=== PATIENT | female | born 2000 | race Caucasian/White ===

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

== ENCOUNTER → 2022-01-05 | Outpatient (REF) | payer OTHER | LOC: M SFHCWAGY 16:47 | PROVIDERS: ATTEND Advanced Practice Midwife | DX: Z36.85 Encounter for antenatal screening for Streptococcus B (principal) ==

== ENCOUNTER → 2022-01-22 | Outpatient (CLI) | payer OTHER ==
[~2022-01-22] MED LIST changes: +COLA100C5 PO; +IRON1TAB2 PO
== END ==
LOC: M LABSMTC 10:51
PROVIDERS: ATTEND Anesthesiology
DX: Z01.812 Encounter for preprocedural laboratory examination (principal); Z20.822 Contact with and (suspected) exposure to COVID-19

== ENCOUNTER 2022-01-27 06:10 | Inpatient (IN) | payer OTHER ==
[2022-01-27] VITALS (7 sets, daily range): BP systolic 119–143; BP diastolic 61–88
[~2022-01-27] VITALS: Ht 165.1 cm; Wt 111.7 kg
[2022-01-27] MEDS ORDERED: HOME MED LIST COMPLETE! XX SCH (06:25)
[2022-01-27] MEDS ORDERED: LACTATED RINGER'S 1000 ML IV STA (06:45)
[2022-01-27] MEDS ORDERED: ceFAZolin SOD 2 GM in IV 1 EA IV ONE ×2 (06:45→06:50)
[2022-01-27] MEDS ORDERED: BICITRA 30ML SOLN UDC PO ONE ×2 (06:45→06:50)
[2022-01-27] MEDS ORDERED: LR 1,000 ML IV SCH ×2 (06:45→06:50)
[2022-01-27] MEDS ORDERED: LACTATED RINGER'S 1000 ML IV ONE (06:50)
[2022-01-27 07:58] LABS: HEMATOCRIT 35.2 % (36.0-47.0); HEMOGLOBIN 11.2 g/dl (12.0-15.5); MEAN CORPUSCULAR HEMOGLOBIN 24.7 pg (27.0-33.0); MEAN CORPUSCULAR HGB CONC 31.8 g/dl (32.0-36.5); MEAN CORPUSCULAR VOLUME 77.5 fl (80.0-96.0); PLATELET COUNT, AUTOMATED 281 10^3/uL (150-450); RED BLOOD COUNT 4.54 10^6/uL (4.00-5.40); WHITE BLOOD COUNT 10.5 10^3/uL (4.0-10.0)
[2022-01-27] MEDS ORDERED: MORPHINE PRES-FREE INJ 10 MG/10 ML VIAL (J2274) As Ordered ONE (09:43)
[2022-01-27] MEDS ORDERED: ONDANSETRON 4MG/2ML VIAL As Ordered ONE (09:43)
[2022-01-27] MEDS ORDERED: KETOROLAC 60MG 2ML VIAL As Ordered ONE (09:43)
[2022-01-27] MEDS ORDERED: ACETAMINOPHEN 1000MG 100ML IV BTL (OFIRMEV) (J0131 PER 10MG) As Ordered ONE (09:44)
[2022-01-27] MEDS ORDERED: OXYTOCIN 30 UNITS IN 0.9% NaCl 500ML IV BAG (J2590) As Ordered ONE ×2 (09:44→10:50)
[2022-01-27] MEDS ORDERED: ePHEDrine SULFATE 25 MG/5 ML(5MG/ML) SYRINGE As Ordered ONE (09:57)
[2022-01-27] MEDS ORDERED: SIMETHICONE 80MG CHEW TAB PO PRN (10:05)
[2022-01-27] MEDS ORDERED: PERCOCET 5MG/325MG TAB PO PRN (10:05)
[2022-01-27] MEDS ORDERED: MEASLES,MUMPS,RUBELLA VACCINE INJ (MMR-II) (90707) SC SCH (10:05)
[2022-01-27] MEDS: LR 1,000 ML IV SCH ×2 (10:05→18:12)
[2022-01-27] MEDS ORDERED: MOM 30ML SUSPENSION UDC PO PRN (10:05)
[2022-01-27] MEDS ORDERED: RHOGAM 300 MCG (1500 IU) INJ (J2790) IM SCH (10:05)
[2022-01-27] MEDS ORDERED: OXYTOCIN DRIP 30 UNITS in IV 1 EA IV SCH (10:05)
[2022-01-27] MEDS ORDERED: ONDANSETRON 4MG/2ML VIAL IV PRN ×2 (10:05→11:25)
[2022-01-27] MEDS ORDERED: dexameTHASONE 4 MG/ML 1ML VIAL (J1100 PER 1MG) As Ordered ONE (10:24)
[2022-01-27] MEDS ORDERED: METOCLOPRAMIDE INJ 10MG/2ML VIAL (J2765 PER 1) As Ordered ONE (10:24)
[2022-01-27] MEDS ORDERED: IBUP80TA PO (11:11)
[2022-01-27] MEDS ORDERED: PERCOCET PO (11:11)
[2022-01-27] MEDS ORDERED: oxyCODONE 5MG TAB PO PRN (11:25)
[2022-01-27] MEDS ORDERED: fentaNYL 100 MCG/2 ML INJECTION As Ordered ONE (11:56)
[2022-01-27] MEDS: fentaNYL 100 MCG/2 ML INJECTION IV PRN ×2 (12:00→12:05)
[2022-01-27] MEDS: PERCOCET 5MG/325MG TAB PO PRN (15:44)
[2022-01-27] MEDS: KETOROLAC 30 MG/ML 1ML VIAL IV SCH ×2 (15:45→22:19)
[2022-01-27] MEDS: DOCUSATE SODIUM 100MG CAPSULE PO SCH (20:38)
[2022-01-28 02:00] VITALS: BP 119/67
[2022-01-28] MEDS: KETOROLAC 30 MG/ML 1ML VIAL IV SCH (04:12)
[2022-01-28 06:00] VITALS: BP 136/70
[2022-01-28 06:37] LABS: HEMATOCRIT 28.4 % (36.0-47.0); MEAN CORPUSCULAR HEMOGLOBIN 24.9 pg (27.0-33.0); MEAN CORPUSCULAR VOLUME 77.8 fl (80.0-96.0); PLATELET COUNT, AUTOMATED 259 10^3/uL (150-450); RED BLOOD COUNT 3.65 10^6/uL (4.00-5.40)
[2022-01-28 06:42] LABS: HEMOGLOBIN 9.1 g/dl (12.0-15.5)
[2022-01-28] MEDS: PRENATAL VITAMINS CHEWABLE TABLET PO SCH (08:32)
[2022-01-28] MEDS: DOCUSATE SODIUM 100MG CAPSULE PO SCH ×2 (08:32→20:16)
[2022-01-28] MEDS: PERCOCET 5MG/325MG TAB PO PRN ×2 (08:33→18:51)
[2022-01-28 10:00] VITALS: BP 141/78
[2022-01-28] MEDS: IBUPROFEN 800 MG TAB PO SCH ×2 (12:47→20:18)
[2022-01-28 14:00] VITALS: BP 120/65
[2022-01-28 18:00] VITALS: BP 145/72
[2022-01-28 22:00] VITALS: BP 142/77
[2022-01-29] VITALS (9 sets, daily range): BP systolic 135–152; BP diastolic 76–93
[2022-01-29] MEDS: IBUPROFEN 800 MG TAB PO SCH ×3 (04:25→20:06)
[2022-01-29 09:27] LABS: HEMATOCRIT 30.4 % (36.0-47.0); HEMOGLOBIN 9.5 g/dl (12.0-15.5); MEAN CORPUSCULAR HEMOGLOBIN 24.7 pg (27.0-33.0); MEAN CORPUSCULAR HGB CONC 31.3 g/dl (32.0-36.5); PLATELET COUNT, AUTOMATED 259 10^3/uL (150-450); RED BLOOD COUNT 3.85 10^6/uL (4.00-5.40); WHITE BLOOD COUNT 12.7 10^3/uL (4.0-10.0)
[2022-01-29 09:51] LABS: ALBUMIN 2.2 GM/DL (3.2-5.2); ALT/SGPT 72 U/L (12-78); BILIRUBIN,TOTAL 0.2 MG/DL (0.2-1.0); BLOOD UREA NITROGEN 10 MG/DL (7-18); CALCIUM LEVEL 8.9 MG/DL (8.5-10.1); CARBON DIOXIDE LEVEL 26 MEQ/L (21-32); CHLORIDE LEVEL 110 MEQ/L (98-107); GLUCOSE, FASTING 85 MG/DL (70-100); POTASSIUM SERUM 4.1 MEQ/L (3.5-5.1); SODIUM LEVEL 143 MEQ/L (136-145)
[2022-01-29] MEDS: DOCUSATE SODIUM 100MG CAPSULE PO SCH ×2 (10:02→20:05)
[2022-01-29] MEDS: NIFEdipine 30 MG XL TAB PO SCH (10:03)
[2022-01-29] MEDS: PRENATAL VITAMINS CHEWABLE TABLET PO SCH (10:03)
[2022-01-29] MEDS: PERCOCET 5MG/325MG TAB PO PRN (22:31)
[2022-01-30] VITALS: BP 129/75
[2022-01-30 02:00] VITALS: BP 140/81
[2022-01-30] MEDS: IBUPROFEN 800 MG TAB PO SCH (05:45)
[2022-01-30 06:00] VITALS: BP 128/68
[2022-01-30 08:00] VITALS: BP 138/93
[2022-01-30 08:47] VITALS: BP 136/84
[2022-01-30] MEDS: NIFEdipine 30 MG XL TAB PO SCH (08:47)
[2022-01-30] MEDS: PRENATAL VITAMINS CHEWABLE TABLET PO SCH (08:48)
[2022-01-30] MEDS: DOCUSATE SODIUM 100MG CAPSULE PO SCH (08:48)
[2022-01-30] MEDS ORDERED: NIFE1TAB52 PO (09:06)
[2022-01-30 10:00] VITALS: BP 134/78
== END 2022-01-30 10:45 | disposition home or self-care (01) | DRG 540 ==
LOC: M LDI 06:10 → M OBS 12:49
PROVIDERS: ADMIT Obstetrics & Gynecology; ATTEND Obstetrics & Gynecology
PROC: 10D00Z1 Extraction of Products of Conception, Low, Open Approach (ICD-10-PCS; principal; 2022-01-27 09:30)
DX: O34.211 Maternal care for low transverse scar from previous cesarean delivery (principal); Z37.0 Single live birth; Z3A.39 39 weeks gestation of pregnancy

== ENCOUNTER 2023-01-09 07:14 | Emergency (ER) | payer OTHER ==
[~2023-01-09] VITALS: Ht 177.8 cm; Wt 90.9 kg
[~2023-01-09 07:14] MED LIST changes: +NIFE1TAB52 PO
[2023-01-09 08:26] LABS: BASO # 0.1 10^3/uL (0.0-0.2); BASO % 0.7 % (0.0-1.0); EOS # 0.2 10^3/uL (0.0-0.5); EOS % 3.3 % (0.0-3.0); HEMATOCRIT 39.6 % (36.0-47.0); HEMOGLOBIN 12.9 g/dl (12.0-15.5); LYMPH # 2.7 10^3/uL (1.5-5.0); LYMPH % 37.7 % (24.0-44.0); MEAN CORPUSCULAR HGB CONC 32.6 g/dl (32.0-36.5); MEAN CORPUSCULAR VOLUME 82.8 fl (80.0-96.0); MONO # 0.6 10^3/uL (0.0-0.8); MONO % 8.8 % (2.0-8.0); NEUTROPHILS # 3.5 10^3/uL (1.5-8.5); NEUTROPHILS % 49.4 % (36.0-66.0); PLATELET COUNT, AUTOMATED 239 10^3/uL (150-450); RED BLOOD COUNT 4.78 10^6/uL (4.00-5.40); WHITE BLOOD COUNT 7.2 10^3/uL (4.0-10.0)
[2023-01-09 08:55] LABS: HCG, SERUM QUANTITATIVE 367.5 MIU/ML (<4.2)
[2023-01-09 08:56] LABS: BLOOD UREA NITROGEN 15 MG/DL (9-23); CALCIUM LEVEL 9.3 MG/DL (8.5-10.1); CARBON DIOXIDE LEVEL 27 MMOL/L (20-31); CHLORIDE LEVEL 106 MMOL/L (98-107); CREATININE FOR GFR 0.84 MG/DL (0.55-1.30); GLUCOSE, FASTING 92 MG/DL (60-100); POTASSIUM SERUM 3.8 MMOL/L (3.5-5.1); SODIUM LEVEL 140 MMOL/L (136-145)
[2023-01-09] MEDS ORDERED: LIDOCAINE 5% (LIDODERM) PATCH TD ONE (09:25)
[2023-01-09] MEDS ORDERED: ACETAMINOPHEN 500 MG TAB PO ONE (09:25)
[2023-01-09 10:40] VITALS: BP 131/63
[2023-01-09 11:03] LABS: GC DNA AMPLIFICATION POSITIVE (NEGATIVE)
== END 2023-01-09 10:55 | disposition home or self-care (01) ==
LOC: M ED 07:14
DX: M54.9 Dorsalgia, unspecified (principal); O26.891 Other specified pregnancy related conditions, first trimester; R93.5 Abnormal findings on diagnostic imaging of other abdominal regions, including retroperitoneum; Z87.59 Personal history of other complications of pregnancy, childbirth and the puerperium; Z88.0 Allergy status to penicillin; Z88.5 Allergy status to narcotic agent; Z88.8 Allergy status to other drugs, medicaments and biological substances

== ENCOUNTER 2023-01-11 08:12 | Emergency (ER) | payer OTHER ==
[~2023-01-11] VITALS: Ht 165.1 cm; Wt 102.2 kg
[2023-01-11] MEDS ORDERED: LIDOCAINE 1% SDV 5ML VIAL DILUENT ONE (11:10)
[2023-01-11] MEDS ORDERED: cefTRIAXone 500MG VIAL IM ONE (11:10)
[2023-01-11 13:16] VITALS: BP 133/77
== END 2023-01-11 13:18 | disposition home or self-care (01) ==
LOC: M ED 08:12
DX: O20.0 Threatened abortion (principal); O98.211 Gonorrhea complicating pregnancy, first trimester; A54.02 Gonococcal vulvovaginitis, unspecified; Z3A.01 Less than 8 weeks gestation of pregnancy; Z88.0 Allergy status to penicillin
CPT/HCPCS: 84702; 96372; 99283; J0696

== ENCOUNTER → 2023-01-17 | Outpatient (CLI) | payer OTHER | LOC: M PLALAB 14:57 | PROVIDERS: ATTEND Advanced Practice Midwife | DX: O20.0 Threatened abortion (principal) ==

== ENCOUNTER → 2023-01-18 | Outpatient (CLI) | payer OTHER | LOC: M WHC 11:30 | PROVIDERS: ATTEND Advanced Practice Midwife | DX: O20.0 Threatened abortion (principal) ==

== ENCOUNTER → 2023-02-20 | Outpatient (CLI) | payer OTHER ==
[2023-02-20 19:30] LABS: URIC ACID 3.1 MG/DL (3.1-7.8)
[2023-02-20 19:32] LABS: LDH LACTATE DEHYDROGENASE 179 U/L (120-246)
[2023-02-20 19:33] LABS: ALT/SGPT 24 U/L (7.0-40); AST/SGOT 17 U/L (<34); BILIRUBIN,TOTAL 0.4 MG/DL (0.3-1.2); CREATININE FOR GFR 0.73 MG/DL (0.55-1.30)
[2023-02-20 19:39] LABS: HEMATOCRIT 40.2 % (36.0-47.0); MEAN CORPUSCULAR HEMOGLOBIN 27.3 pg (27.0-33.0); MEAN CORPUSCULAR HGB CONC 32.3 g/dl (32.0-36.5); MEAN CORPUSCULAR VOLUME 84.3 fl (80.0-96.0); PLATELET COUNT, AUTOMATED 274 10^3/uL (150-450); RED BLOOD COUNT 4.77 10^6/uL (4.00-5.40); WHITE BLOOD COUNT 11.9 10^3/uL (4.0-10.0)
[2023-02-20 19:51] LABS: TOTAL PROTEIN,RANDOM URINE 23.7 MG/DL (0.0-14.0)
[2023-02-20 20:09] LABS: HEPATITIS C VIRUS ABY INDEX < 0.0 INDEX (<0.8)
[2023-02-20 20:11] LABS: HIV 1&2 SCREEN CENTAUR NEGATIVE (NEGATIVE)
[2023-02-20 20:25] LABS: CREATININE,RANDOM URINE 408.7 MG/DL
[2023-02-20 20:54] LABS: GC DNA AMPLIFICATION NEGATIVE (NEGATIVE)
== END ==
LOC: M PLALAB 15:01
PROVIDERS: ATTEND Advanced Practice Midwife
DX: Z34.81 Encounter for supervision of other normal pregnancy, first trimester (principal)

== ENCOUNTER 2023-03-08 14:09 | Emergency (ER) | payer OTHER ==
[~2023-03-08] VITALS: Ht 165.1 cm; Wt 99.4 kg
[2023-03-08] MEDS ORDERED: ASPI-161 PO (14:25)
[2023-03-08 15:55] LABS: BASO # 0.1 10^3/uL (0.0-0.2); BASO % 0.8 % (0.0-1.0); EOS # 0.2 10^3/uL (0.0-0.5); EOS % 2.3 % (0.0-3.0); HEMATOCRIT 40.1 % (36.0-47.0); HEMOGLOBIN 13.2 g/dl (12.0-15.5); LYMPH # 1.5 10^3/uL (1.5-5.0); LYMPH % 17.9 % (24.0-44.0); MEAN CORPUSCULAR HEMOGLOBIN 27.3 pg (27.0-33.0); MEAN CORPUSCULAR HGB CONC 32.9 g/dl (32.0-36.5); MONO # 0.7 10^3/uL (0.0-0.8); NEUTROPHILS # 5.9 10^3/uL (1.5-8.5); NEUTROPHILS % 70.6 % (36.0-66.0); PLATELET COUNT, AUTOMATED 218 10^3/uL (150-450); RED BLOOD COUNT 4.83 10^6/uL (4.00-5.40); WHITE BLOOD COUNT 8.4 10^3/uL (4.0-10.0)
[2023-03-08] MEDS ORDERED: ONDANSETRON 4MG 2ML VIAL IV ONE (16:00)
[2023-03-08] MEDS ORDERED: NS 1,000 ML IV ONE (16:00)
[2023-03-08 16:08] LABS: LIPASE 27 U/L (12-53)
[2023-03-08 16:10] LABS: ALBUMIN 3.2 G/DL (3.2-5.2); ALKALINE PHOSPHATASE 95 U/L (46-116); ALT/SGPT 19 U/L (7.0-40); AST/SGOT 18 U/L (<34); BILIRUBIN,DIRECT < 0.1 MG/DL (<0.4); BILIRUBIN,TOTAL 0.3 MG/DL (0.3-1.2)
[2023-03-08] MEDS ORDERED: CEFD300CAP PO (17:55)
[2023-03-08] MEDS ORDERED: MUCI600T31 PO (17:55)
[2023-03-08] MEDS ORDERED: ONDA4TAB6 PO (17:56)
[2023-03-08 18:04] VITALS: BP 119/71
[2023-03-08 18:45] LABS: RSV AMPLIFICATION NEGATIVE (NEGATIVE)
== END 2023-03-08 18:13 | disposition home or self-care (01) ==
LOC: M ED 14:09
DX: O21.9 Vomiting of pregnancy, unspecified (principal); O34.82 Maternal care for other abnormalities of pelvic organs, second trimester; Z79.82 Long term (current) use of aspirin; Z88.0 Allergy status to penicillin; Z88.5 Allergy status to narcotic agent; Z88.8 Allergy status to other drugs, medicaments and biological substances
CPT/HCPCS: 76705; 76815; 80047; 80076; 81001; 83690; 85025; 87086; 87631; 96374; 99284; J2405

== ENCOUNTER → 2023-05-01 | Outpatient (CLI) | payer OTHER ==
[~2023-05-01] MED LIST changes: +ASPI-161 PO; +CEFD300CAP PO; +MUCI600T31 PO; +ONDA4TAB6 PO
== END ==
LOC: M WHC 13:21
PROVIDERS: ATTEND Obstetrics & Gynecology
DX: Z34.82 Encounter for supervision of other normal pregnancy, second trimester (principal)

== ENCOUNTER → 2023-06-22 | Outpatient (CLI) | payer OTHER | LOC: M WHC 11:16 | PROVIDERS: ATTEND Advanced Practice Midwife | DX: O34.211 Maternal care for low transverse scar from previous cesarean delivery (principal) ==

== ENCOUNTER → 2023-06-22 | Outpatient (CLI) | payer OTHER ==
[2023-06-22 16:10] LABS: HEMATOCRIT 37.3 % (36.0-47.0); HEMOGLOBIN 12.1 g/dl (12.0-15.5); MEAN CORPUSCULAR HEMOGLOBIN 27.8 pg (27.0-33.0); MEAN CORPUSCULAR HGB CONC 32.4 g/dl (32.0-36.5); MEAN CORPUSCULAR VOLUME 85.6 fl (80.0-96.0); PLATELET COUNT, AUTOMATED 228 10^3/uL (150-450); RED BLOOD COUNT 4.36 10^6/uL (4.00-5.40)
== END ==
LOC: M PLALAB 11:18
PROVIDERS: ATTEND Advanced Practice Midwife
DX: O34.211 Maternal care for low transverse scar from previous cesarean delivery (principal)

== ENCOUNTER 2023-07-18 21:16 | Outpatient (CLI) | payer OTHER ==
[~2023-07-18] VITALS: Ht 165.1 cm; Wt 96.3 kg
[2023-07-18 21:37] VITALS: BP 115/69
[2023-07-18 22:31] LABS: AMORPHOUS SEDIMENT SMALL (NEGATIVE); APPEARANCE, URINE CLOUDY (CLEAR); BACTERIA, URINE AUTO 1+ (NEGATIVE); BILIRUBIN, URINE AUTO NEGATIVE (NEGATIVE); BLOOD, URINE BLOOD NEGATIVE (NEGATIVE); COLOR, URINE AMBER (YELLOW); GLUCOSE, URINE (UA) AUTO NEGATIVE (NEGATIVE); KETONE, URINE AUTO NEGATIVE (NEGATIVE); LEUKOCYTE ESTERASE, URINE AUTO TRACE (NEGATIVE); MUCUS, URINE SMALL (NEGATIVE); NITRITE, URINE AUTO NEGATIVE (NEGATIVE); PROTEIN, URINE AUTO 1+ mg/dL (NEGATIVE); RBC, URINE AUTO 0 /HPF (0-3); SPECIFIC GRAVITY URINE AUTO 1.025 (1.002-1.035); SQUAMOUS EPITHELIAL CELL UR AU 4 /HPF (0-6); WBC, URINE AUTO 0 /HPF (0-3)
== END 2023-07-18 22:50 | disposition home or self-care (01) ==
LOC: M LDO 21:16
PROVIDERS: ATTEND Specialist
DX: O26.893 Other specified pregnancy related conditions, third trimester (principal); R10.2 Pelvic and perineal pain; R25.2 Cramp and spasm; O34.218 Maternal care for other type scar from previous cesarean delivery; O99.343 Other mental disorders complicating pregnancy, third trimester; Z88.1 Allergy status to other antibiotic agents; F41.8 Other specified anxiety disorders; Z88.5 Allergy status to narcotic agent; Z87.59 Personal history of other complications of pregnancy, childbirth and the puerperium; Z3A.31 31 weeks gestation of pregnancy
CPT/HCPCS: 59025; 81001; G0463

== ENCOUNTER → 2023-08-22 | Outpatient (REF) | payer OTHER ==
[~2023-08-22] MED LIST changes: +OXYC1TAB23 PO
== END ==
LOC: M SFHCWAGY 16:53
PROVIDERS: ATTEND Obstetrics & Gynecology
DX: Z34.93 Encounter for supervision of normal pregnancy, unspecified, third trimester (principal)

== ENCOUNTER → 2023-08-30 | Outpatient (CLI) | payer OTHER ==
[~2023-08-30] MED LIST changes: -OXYC1TAB23 PO
[2023-08-30 14:21] LABS: HEMATOCRIT 38.1 % (36.0-47.0); HEMOGLOBIN 12.2 g/dl (12.0-15.5); MEAN CORPUSCULAR HEMOGLOBIN 27.1 pg (27.0-33.0); MEAN CORPUSCULAR VOLUME 84.7 fl (80.0-96.0); PLATELET COUNT, AUTOMATED 227 10^3/uL (150-450); WHITE BLOOD COUNT 10.2 10^3/uL (4.0-10.0)
[2023-08-30 14:49] LABS: URIC ACID 2.4 MG/DL (3.1-7.8)
[2023-08-30 14:51] LABS: TOTAL PROTEIN,RANDOM URINE 8.3 MG/DL (0.0-14.0)
[2023-08-30 14:52] LABS: ALT/SGPT 60 U/L (7.0-40); AST/SGOT 28 U/L (<34); BILIRUBIN,TOTAL 0.5 MG/DL (0.3-1.2); GLOMERULAR FILTRATION RATE > 60.0 (>60); LDH LACTATE DEHYDROGENASE 182 U/L (120-246)
[2023-08-30 14:56] LABS: CREATININE,RANDOM URINE 50.4 MG/DL
== END ==
LOC: M PLALAB 11:22
PROVIDERS: ATTEND Specialist
DX: Z34.83 Encounter for supervision of other normal pregnancy, third trimester (principal)

== ENCOUNTER 2023-09-05 09:30 | Inpatient (IN) | payer OTHER ==
[~2023-09-05] VITALS: Ht 165.1 cm; Wt 94.5 kg
[2023-09-05] VITALS (9 sets, daily range): BP systolic 113–141; BP diastolic 68–87; TEMP 98; O2SAT 97–98
[~2023-09-05 09:30] MED LIST changes: +ACETAMINOPHEN 1000MG 100ML IV BAG As Ordered ONE; +KETOROLAC 60MG 2ML VIAL As Ordered ONE; +METOCLOPRAMIDE INJ 10MG/2ML VIAL As Ordered ONE; +MORPHINE PRES-FREE INJ 10 MG/10 ML VIAL As Ordered ONE; +ONDANSETRON 4MG 2ML VIAL As Ordered ONE; +OXYTOCIN 30UNITS IN 0.9% NaCl 500ML IV BAG As Ordered ONE; +PHENYLephrine 500MCG 5ML (100MCG/ML) SYRINGE As Ordered ONE; +ePHEDrine SULFATE 25 MG/5 ML(5MG/ML) SYRINGE As Ordered ONE
[2023-09-05] MEDS ORDERED: LACTATED RINGER'S 1000 ML IV STA (11:46)
[2023-09-05] MEDS ORDERED: ceFAZolin SOD 2 GM in IV 1 EA IV ONE (11:50)
[2023-09-05] MEDS ORDERED: LR 1,000 ML IV SCH (11:50)
[2023-09-05] MEDS ORDERED: BICITRA 30ML SOLN UDC PO ONE (11:50)
[2023-09-05] MEDS ORDERED: HOME MED LIST COMPLETE! XX SCH (12:05)
[2023-09-05 12:11] LABS: HEMATOCRIT 39.3 % (36.0-47.0); HEMOGLOBIN 12.8 g/dl (12.0-15.5); MEAN CORPUSCULAR HEMOGLOBIN 27.1 pg (27.0-33.0); MEAN CORPUSCULAR HGB CONC 32.6 g/dl (32.0-36.5); MEAN CORPUSCULAR VOLUME 83.3 fl (80.0-96.0); PLATELET COUNT, AUTOMATED 262 10^3/uL (150-450); RED BLOOD COUNT 4.72 10^6/uL (4.00-5.40); WHITE BLOOD COUNT 12.4 10^3/uL (4.0-10.0)
[2023-09-05] MEDS ORDERED: fentaNYL 100 MCG/2 ML INJECTION As Ordered ONE ×2 (13:03→15:47)
[2023-09-05] MEDS: LR 1,000 ML IV SCH ×2 (13:25→19:46)
[2023-09-05] MEDS ORDERED: SIMETHICONE 80MG CHEW TAB PO PRN (13:25)
[2023-09-05] MEDS ORDERED: RHOGAM 300MCG (1500IU) INJ IM SCH (13:25)
[2023-09-05] MEDS ORDERED: MOM 30ML SUSPENSION UDC PO PRN (13:25)
[2023-09-05] MEDS ORDERED: ONDANSETRON 4MG 2ML VIAL IV PRN ×2 (13:25→14:10)
[2023-09-05] MEDS ORDERED: OXYTOCIN DRIP 30 UNITS in IV 1 EA IV SCH (13:25)
[2023-09-05] MEDS ORDERED: PERCOCET 5MG/325MG TAB PO PRN (13:25)
[2023-09-05] MEDS ORDERED: METOCLOPRAMIDE INJ 10MG/2ML VIAL IV PRN (14:10)
[2023-09-05] MEDS ORDERED: fentaNYL 100 MCG/2 ML INJECTION IV PRN (14:10)
[2023-09-05] MEDS ORDERED: NALOXONE INJ 0.4MG/1ML VIAL IV PRN ×2 (14:10)
[2023-09-05] MEDS: SLF 3 ML SYR IV SCH ×2 (14:10→20:12)
[2023-09-05] MEDS ORDERED: **NOTE PATIENT COMMENT** MISC XX SCH (14:10)
[2023-09-05] MEDS ORDERED: NALBUPHINE HCL 1MG/0.1ML (100MG/10ML) MDV IV PRN (14:30)
[2023-09-05] MEDS ORDERED: OXYTOCIN 30UNITS IN 0.9% NaCl 500ML IV BAG As Ordered ONE (14:57)
[2023-09-05] MEDS: PERCOCET 5MG/325MG TAB PO PRN (18:07)
[2023-09-05] MEDS: DOCUSATE SODIUM 100MG CAPSULE PO SCH (19:45)
[2023-09-05] MEDS: KETOROLAC 30 MG/ML 1ML VIAL IV SCH (19:45)
[2023-09-06] MEDS: PERCOCET 5MG/325MG TAB PO PRN ×2 (00:07→05:01)
[2023-09-06] MEDS: KETOROLAC 30 MG/ML 1ML VIAL IV SCH ×2 (01:49→07:42)
[2023-09-06 02:00] VITALS: BP 140/86; O2SAT 98
[2023-09-06 02:53] VITALS: BP 129/79
[2023-09-06] MEDS: LR 1,000 ML IV SCH (05:25)
[2023-09-06] MEDS: SLF 3 ML SYR IV SCH (06:10)
[2023-09-06 06:30] VITALS: BP 124/59; O2SAT 98
[2023-09-06 07:23] LABS: HEMATOCRIT 31.6 % (36.0-47.0); HEMOGLOBIN 10.4 g/dl (12.0-15.5); MEAN CORPUSCULAR HEMOGLOBIN 27.2 pg (27.0-33.0); MEAN CORPUSCULAR HGB CONC 32.9 g/dl (32.0-36.5); MEAN CORPUSCULAR VOLUME 82.5 fl (80.0-96.0); PLATELET COUNT, AUTOMATED 234 10^3/uL (150-450); RED BLOOD COUNT 3.83 10^6/uL (4.00-5.40); WHITE BLOOD COUNT 14.3 10^3/uL (4.0-10.0)
[2023-09-06] MEDS: PRENATAL VITAMINS CHEWABLE TABLET PO SCH (09:00)
[2023-09-06] MEDS: DOCUSATE SODIUM 100MG CAPSULE PO SCH ×2 (09:00→21:00)
[2023-09-06 10:00] VITALS: BP 133/82; O2SAT 100
[2023-09-06] MEDS: IBUPROFEN 800 MG TAB PO SCH (17:01)
[2023-09-06 18:00] VITALS: BP 129/75; O2SAT 98
[2023-09-06 22:00] VITALS: BP 133/85; O2SAT 99
[2023-09-07] MEDS: IBUPROFEN 800 MG TAB PO SCH ×2 (00:04→07:53)
[2023-09-07 02:00] VITALS: BP 126/77; O2SAT 96
[2023-09-07 06:00] VITALS: BP 133/74; O2SAT 99
[2023-09-07] MEDS ORDERED: BOOSTRIX VACCINE (TETANUS/DIPHTH/ACEL. PERTUSSIS) 0.5ML SYR IM.IMMUN ONE (09:00)
[2023-09-07] MEDS: PRENATAL VITAMINS CHEWABLE TABLET PO SCH (09:00)
[2023-09-07] MEDS: DOCUSATE SODIUM 100MG CAPSULE PO SCH (09:00)
[2023-09-07] MEDS ORDERED: MEASLES,MUMPS,RUBELLA VACCINE INJ (MMR-II) SC.IMMUN ONE (09:00)
[2023-09-07] MEDS ORDERED: OXYC1TAB23 PO (10:24)
[2023-09-07] MEDS ORDERED: IBUP80TA PO (10:24)
== END 2023-09-07 13:29 | disposition home or self-care (01) | DRG 540 ==
LOC: M LDI 11:04 → M OBS 16:23
PROVIDERS: ADMIT Obstetrics & Gynecology; ATTEND Obstetrics & Gynecology
PROC: 10D00Z1 Extraction of Products of Conception, Low, Open Approach (ICD-10-PCS; principal; 2023-09-05 09:30)
DX: O34.211 Maternal care for low transverse scar from previous cesarean delivery (principal); Z37.0 Single live birth; O13.4 Gestational [pregnancy-induced] hypertension without significant proteinuria, complicating childbirth; Z3A.38 38 weeks gestation of pregnancy; Z88.0 Allergy status to penicillin; Z88.5 Allergy status to narcotic agent; Z88.8 Allergy status to other drugs, medicaments and biological substances

== ENCOUNTER 2024-11-14 16:20 | Emergency (ER) | payer MEDICAID, OTHER ==
[~2024-11-14] VITALS: Ht 165.1 cm; Wt 101.8 kg
[~2024-11-14 16:20] MED LIST changes: -ACETAMINOPHEN 1000MG 100ML IV BAG As Ordered ONE; -ASPI-161 PO; +ASPI-615 PO; -KETOROLAC 60MG 2ML VIAL As Ordered ONE; -METOCLOPRAMIDE INJ 10MG/2ML VIAL As Ordered ONE; -MORPHINE PRES-FREE INJ 10 MG/10 ML VIAL As Ordered ONE; +ONDA-282 PO; -ONDA4TAB6 PO; -ONDANSETRON 4MG 2ML VIAL As Ordered ONE; +OXYC1TAB23 PO; -OXYTOCIN 30UNITS IN 0.9% NaCl 500ML IV BAG As Ordered ONE; -PHENYLephrine 500MCG 5ML (100MCG/ML) SYRINGE As Ordered ONE; -ePHEDrine SULFATE 25 MG/5 ML(5MG/ML) SYRINGE As Ordered ONE
[2024-11-14 17:24] LABS: BASO # 0.1 10^3/uL (0.0-0.2); BASO % 0.7 % (0.0-1.0); EOS # 0.2 10^3/uL (0.0-0.5); EOS % 2.7 % (0.0-3.0); HEMATOCRIT 39.2 % (36.0-47.0); HEMOGLOBIN 12.8 g/dl (12.0-15.5); LYMPH # 2.5 10^3/uL (1.5-5.0); LYMPH % 27.8 % (24.0-44.0); MEAN CORPUSCULAR HEMOGLOBIN 27.2 pg (27.0-33.0); MEAN CORPUSCULAR HGB CONC 32.7 g/dl (32.0-36.5); MEAN CORPUSCULAR VOLUME 83.4 fl (80.0-96.0); MONO # 0.5 10^3/uL (0.0-0.8); MONO % 5.4 % (2.0-8.0); NEUTROPHILS # 5.6 10^3/uL (1.5-8.5); NEUTROPHILS % 62.8 % (36.0-66.0); PLATELET COUNT, AUTOMATED 268 10^3/uL (150-450); WHITE BLOOD COUNT 8.9 10^3/uL (4.0-10.0)
[2024-11-14 17:45] LABS: BLOOD UREA NITROGEN 22 MG/DL (9-23); CALCIUM LEVEL 10.3 MG/DL (8.5-10.1); CARBON DIOXIDE LEVEL 26 MMOL/L (20-31); CHLORIDE LEVEL 106 MMOL/L (98-107); CREATININE FOR GFR 0.91 MG/DL (0.55-1.30); GLOMERULAR FILTRATION RATE > 60.0 (>60); GLUCOSE, FASTING 79 MG/DL (60-100); POTASSIUM SERUM 4.7 MMOL/L (3.5-5.1); SODIUM LEVEL 141 MMOL/L (136-145)
[2024-11-14 17:49] LABS: HCG, SERUM QUALITATIVE NEGATIVE (NEGATIVE)
[2024-11-14 18:18] VITALS: TEMP 98.5; O2SAT 98
[2024-11-14 20:24] VITALS: BP 121/70
== END 2024-11-14 20:33 | disposition home or self-care (01) ==
LOC: M ED 16:20
DX: N93.9 Abnormal uterine and vaginal bleeding, unspecified (principal); F41.9 Anxiety disorder, unspecified; F32.A Depression, unspecified; Z88.0 Allergy status to penicillin; Z88.5 Allergy status to narcotic agent; Z88.8 Allergy status to other drugs, medicaments and biological substances

== ENCOUNTER → 2024-12-02 | Outpatient (CLI) | payer OTHER ==
[2024-12-02 14:15] LABS: HCG, SERUM QUANTITATIVE < 2.6 MIU/ML (<4.2)
[2024-12-02 14:19] LABS: THYROID STIMULATING HORMONE 1.978 uIU/ML (0.55-4.78)
[2024-12-02 14:21] LABS: FOLLICLE STIMULATING HORMONE 13.9 mIU/ML; FREE T4 1.07 NG/DL (0.89-1.76); LUTEINIZING HORMONE 68.1 mIU/ML
[2024-12-02 14:31] LABS: Trichomonas vaginalis (AMP) NOT DETECTED (NEGATIVE)
[2024-12-02 14:54] LABS: GC DNA AMPLIFICATION NEGATIVE (NEGATIVE)
== END ==
LOC: M PLALAB 11:52
PROVIDERS: ATTEND Obstetrics & Gynecology
DX: N93.9 Abnormal uterine and vaginal bleeding, unspecified (principal); N92.3 Ovulation bleeding

== ENCOUNTER → 2024-12-02 | Outpatient (REF) | payer OTHER | LOC: M PLALAB 11:33 | PROVIDERS: ATTEND Obstetrics & Gynecology | DX: N93.9 Abnormal uterine and vaginal bleeding, unspecified (principal); N92.3 Ovulation bleeding; Z53.9 Procedure and treatment not carried out, unspecified reason ==

== ENCOUNTER → 2024-12-13 | Outpatient (CLI) | payer OTHER | LOC: M WHC 11:17 | PROVIDERS: ATTEND Obstetrics & Gynecology | DX: N83.292 Other ovarian cyst, left side (principal); N93.9 Abnormal uterine and vaginal bleeding, unspecified ==

== ENCOUNTER → 2025-04-04 | Outpatient (CLI) | payer OTHER ==
[~2025-04-04] MED LIST changes: -ELIM5CRE2 TOP; +PERM60CR8 TOP
== END ==
LOC: M RAD 08:17
PROVIDERS: ATTEND Advanced Practice Midwife
DX: O20.0 Threatened abortion (principal)

== ENCOUNTER → 2025-10-23 | Outpatient (CLI) | payer OTHER ==
[2025-10-23 13:51] LABS: PLATELET COUNT, AUTOMATED 272 10^3/uL (150-450)
[2025-10-23 14:30] LABS: HCG, SERUM QUANTITATIVE < 2.6 MIU/ML (<4.2)
[2025-10-23 14:32] LABS: ESTIMATED AVERAGE GLUCOSE 105.0 MG/DL (60-110)
[2025-10-23 14:33] LABS: FREE T4 1.17 NG/DL (0.89-1.76)
[2025-10-23 14:34] LABS: IRON (FE) 30 UG/DL (50-170); PERCENT SATURATION 8.2 % (13.2-45.0)
[2025-10-23 14:35] LABS: LUTEINIZING HORMONE 6.6 mIU/ML; PROLACTIN 5.62 NG/ML
[2025-10-24 22:27] LABS: DEHYDROEPIANDROSTERONE SULFATE 311.0 mcg/dL (14-349)
[2025-10-29 22:37] LABS: TESTOSTERONE FREE (DIRECT) 4.5 pg/mL (0.1-6.4); TESTOSTERONE TOTAL FOR T&D 30.0 ng/dL (2-45)
[2025-10-30 16:57] LABS: 17 HYDROXY PROGESTERONE 201.0 ng/dL
== END ==
LOC: M PLALAB 11:55
PROVIDERS: ATTEND Advanced Practice Midwife
DX: N92.0 Excessive and frequent menstruation with regular cycle (principal)